=== PATIENT | male | born 1985 | race Caucasian/White ===

== ENCOUNTER 2023-09-03 18:28 | Inpatient (IN) | payer OTHER, SELFPAY ==
[2023-09-03] VITALS (14 sets, daily range): BP systolic 106–162; BP diastolic 71–101; BMI 29.9; BMI 29.3
[2023-09-03 10:09] LABS: % Basophils 1.1 % (0-2); % Eosinophils 2.9 % (0-6); % Immature Granulocytes 0.3 % (0-0.5); % Lymphocytes 30.8 % (20.5-51.1); % Monocytes 12.8 % (1.7-9.3); % Neutrophils 52.1 % (42.2-75.2); Absolute Basophils 0.1 10^3/uL (0-0.2); Absolute Eosinophils 0.2 10^3/uL (0-0.7); Absolute Lymphocytes 2.1 10^3/uL (1.2-3.4); Absolute Monocytes 0.9 10^3/uL (0.1-0.6); Absolute Neutrophils 3.5 10^3/uL (1.4-6.5); Hematocrit 44.9 % (39.0-52.0); Hemoglobin 15.4 g/dL (13.0-18.0); Mean Corp Hgb Conc. 34.3 g/dL (33.0-37.0); Mean Corpuscular Hgb 28.4 pg (27.0-31.0); Mean Corpuscular Volume 82.7 fL (80.0-94.0); Mean Platelet Volume 9.7 fL (7.4-10.4); Nucleated Red Blood Cells % 0 % (-); Platelet Count 357 10^3/uL (130-400); Red Blood Cell Count 5.43 10^6/uL (4.70-6.10); Red Cell Dist. Width 13.1 % (11.5-14.5); White Blood Cell Count 6.7 10^3/uL (4.8-10.8)
[2023-09-03 10:22] LABS: ALT (SGPT) 90 U/L (0-50); AST (SGOT) 57 U/L (17-59); Albumin 4.6 g/dl (3.5-5.0); Alkaline Phosphatase 77 U/L (38-126); Blood Urea Nitrogen 14 mg/dl (9-20); Calcium 9.6 mg/dl (8.4-10.2); Carbon Dioxide 26 mmol/L (22-30); Chloride 104 mmol/L (98-107); Glucose 108 mg/dl (70-99); Sodium 139 mmol/L (135-145); Total Bilirubin 0.8 mg/dl (0.2-1.3); Total Protein 7.2 g/dl (6.3-8.2); eGFR > 60.00
--- NOTE | 2023-09-03 10:53 | ED.GENMED ---
History of Present Illness
<Merari Pickett NP - Last Filed: 09/03/23 18:31>
General
Chief Complaint: Weakness
Source: patient and spouse
Exam Limitations: none
Time Seen by Provider: 09/03/23 10:46
Nursing documentation reviewed up to this point in time: agreed with
Travel History
Have you had any contact with someone who has COVID-19?: No
Do you have any symptoms of coronavirus? Fever > 100 degrees, chills, cough, shortness of breath, sore throat, loss of taste or smell, muscle aches, or headache?: No
History of Present Illness
History of Present Illness:
38 yo male with no significant PMHX presents stating:
4 days ago both 5th fingers and toes became tingly and this has persisted
3 days ago bilateral posterior thighs aching, this has passed but legs feel 'heavy.'
2 days ago: tingling spread to finger of both hands, sparing thumbs and index fingers, spread to all toes.
Numbness left upper cheek and spiritism area
Tip of tongue feels numb
Roof of mouth feels numb
Calves feel like he ran a marathon and legs are heavy causing him to walk slowly
Both arms feel heavy, unable to lift right arm more than 90 degrees due to heavy feeling, no pain.
states pt walks 'hunched over and leaning to the right and walks slowly' past 2 days. (He does ambulate slowly and feels unsteady due to weak legs)
No recollection of overuse or injury.
No significant family history
Family had GI virus last week with n/v. Pt had nausea for one day 3 days ago, no other symptoms
PE: drifting RUE, 5/5 strength all extremities, ambulates well but slowly, almost fell on way in when he tries to walk any faster, as legs give out.
CBC, CMP, CPK normal
No meningeal signs
No vascular deficits.
You can reach me at [phone] if you need to talk
Your thoughts? Do you think he needs MRI or spinal tap, we can admit for further work up.
He seems to be a reasonable man.
Past History
<Merari Pickett SCOUT EXECUTIVE - Last Filed: 09/03/23 18:31>
Past History
ED Past Medical History: None
ED Past Surgical History: None
Social History
Tobacco: Non-smoker
Alcohol: None
Personal:
Living: with family
Employment: Employed (desk job)
Family History
Family History: Cancer
Review of Systems
<Merari Pickett, SCOUT EXECUTIVE - Last Filed: 09/03/23 18:31>
Review of Systems
Allergies reviewed?: Yes
All Other Systems: ROS reviewed and negative except as documented in HPI and ROS
Constitutional: Denies fever or chills
EENT: Denies sore throat
Respiratory: Denies trouble breathing
Cardiac: Denies chest pain
ABD/GI: Denies abdominal pain, nausea, vomiting, diarrhea or anorexia
: Denies dysuria, incontinence, difficulty voiding or urgency
Musculoskeletal: Reports back pain (chronic intermittent back and neck pain, nothing new)
Skin: Reports no symptoms
Neurological: Reports numbness (as described in HPI); Denies dizzy or headache
Endocrine: Denies polyuria or polydipsia
Hematologic/Lymphatic: Reports no symptoms
Psychiatric: Reports no symptoms
Phy Exam
<Merari Pickett, SCOUT EXECUTIVE - Last Filed: 09/03/23 18:31>
Physical Exam
Physical Exam:
GENERAL: No acute distress. A&Ox3.
CONSTITUTIONAL: Afebrile.
EYES: PERRL, conjunctivae normal, EOMs intact
Neck: Supple
ENMT: moist mucus membranes, Pharynx nl
RESPIRATORY: Regular respirations, nonlabored, lungs clear.
CARDIOVASCULAR: Regular rate and rhythm, no murmurs, no rubs.
GI: Soft, nontender, normal BS
MUSCULOSKELETAL: Moves with ease. Well perfused.
SKIN: Warm, dry, pink
PSYCH: Normal mood and affect. Well kept, interactive and appropriate
NEUROLOGIC: Awake, alert and oriented. Speech clear. CN 2-12 intact. Unable to elicit any reflexes in upper or lower extremities
Course
<Merari Pickett, SCOUT EXECUTIVE - Last Filed: 09/03/23 18:31>
Orders/Labs/Results
Orders:
Orders
09/03/23 Breakfast
Regular
09/03/23 09:58
C-Reactive Protein Urgent
Comment: ADD
Complete Blood Count/With Diff Urgent
Comprehensive Metabolic Panel Urgent
Creatine Phosphokinase Urgent
Erythrocyte Sed Rate Urgent
Comment: ADD
Ganglioside Ab Panel [S] Urgent
Comment: ADD ON
Glycohemoglobin (HgbA1c) Urgent
TSH Urgent
Comment: ADD
Vitamin B12 Urgent
Comment: ADD
09/03/23 11:35
Add On- LAB Urgent
Tests Added?: CPK
Add On- LAB Urgent
Tests Added?: Lyme progressive
09/03/23 13:00
Add On- LAB Routine
Tests Added?: B1, b12, tsh, lyme, crp, esr, hiv, hemoglobin a1c
09/03/23 13:02
Bedside Cytology Routine
Date Specimen was Collected: 09/03/23
Time Specimen was Collected: 15:14
Source: CSF
Clinical Impression: muscle weakness, paresthesias, ?GBS
Comment: tube #3
Vital Capacity [RESP] Urgent
Quantity: 1
Special Instructions: please tiger text Danica Gore with results
needs NIF/VC
09/03/23 13:03
CT Head W/o Iv Contrast Routine
Comment:
Reason For Exam: weakness, paresthesias
09/03/23 13:07
NEUROLOGY CONSULT Urgent
Consulting Provider: Danica Gore
Was physician already notified: Yes
Reason for consult: Poss GBS
09/03/23 15:23
Angiotensin-1- Converting, CSF [S] Urgent
CSF Cell Count Urgent
Date Specimen was Collected: 09/03/23
Time Specimen was Collected: 15:14
CSF Tube Number: 4
CSF Cell Count X Urgent
Date Specimen was Collected: 09/03/23
Time Specimen was Collected: 15:14
CSF Tube Number: 4
HIV Combo Urgent
Lyme PCR, DNA [S] Urgent
Lyme Progressive Urgent
Paraneoplastic Ab IgG, CSF [S] Urgent
Spinal Fluid Glucose Urgent
Date Specimen was Collected: 09/03/23
Time Specimen was Collected: 15:14
CSF Tube Number: 2
Spinal Fluid Protein Urgent
Date Specimen was Collected: 09/03/23
Time Specimen was Collected: 15:14
CSF Tube Number: 2
Vitamin B1, Whole Blood [S] Urgent
CSF Culture with Gram Stain Urgent
TRUMAN Source: Csf
Specimen Description:
Date Specimen was Collected: 09/03/23
Time Specimen was Collected: 15:14
# of Tube: 3
Meningitis Panel, CSF by PCR Urgent
TRUMAN Source: Csf
Specimen Description:
09/03/23 16:14
Add On- LAB Routine
Tests Added?: anti-gq1b antibody--serum
09/03/23 16:50
Immune Globulin Per Pharmacy [Immune Globulin- Pharmacy To Place] 35 gram IV DIRECTED ONE
09/03/23 17:08
EMG [Electromyography] Routine
Reason for Exam: GBS
09/03/23 17:28
MR Brain W/o & With Contrast Routine
Comment:
Reason For Exam: tongue numbness, facial numbness, ?gbs
Recent pill cam endoscopy?: No
09/03/23 18:10
Admit/Transfer Patient As Directed
Co-Sign Provider:
Level of Care: Inpatient admission
Assign to:: IMU- Intermediate Care
Physician / Group: Adri
Diagnosis: GBS
Reason for Hospitalization: IVIG
Expected length of stay greater than two midnights?: Yes
ELOS- Estimated Length of Stay in days: 3
I certify the patient meets the requirements for IP care: Yes
09/03/23 18:11
Code Status As Directed
Resuscitation Status: Full Code
09/03/23 18:30
0.9% Sodium Chloride 1000 ml [Nss] 1,000 ml IV 100 mls/hr
09/03/23 22:00
Pft Mip/mep [RESP] TID
Quantity: 1
Vital Capacity [RESP] TID
Quantity: 9
Special Instructions: text Dr. Gore with results through 7am on 09/04; check with NIF
09/04/23 08:00
Pft Mip/mep [RESP] TID
Quantity: 1
Vital Capacity [RESP] TID
Quantity: 9
Special Instructions: text Dr. Gore with results through 7am on 09/04; check with NIF
09/04/23 16:00
Pft Mip/mep [RESP] TID
Quantity: 1
Vital Capacity [RESP] TID
Quantity: 9
Special Instructions: text Dr. Gore with results through 7am on 09/04; check with NIF
09/04/23 22:00
Pft Mip/mep [RESP] TID
Quantity: 1
Vital Capacity [RESP] TID
Quantity: 9
Special Instructions: text Dr. Gore with results through 7am on 09/04; check with NIF
09/05/23 08:00
Pft Mip/mep [RESP] TID
Quantity: 1
Vital Capacity [RESP] TID
Quantity: 9
Special Instructions: text Dr. Gore with results through 7am on 09/04; check with NIF
09/05/23 16:00
Pft Mip/mep [RESP] TID
Quantity: 1
Vital Capacity [RESP] TID
Quantity: 9
Special Instructions: text Dr. Gore with results through 7am on 09/04; check with NIF
09/05/23 22:00
Pft Mip/mep [RESP] TID
Quantity: 1
Vital Capacity [RESP] TID
Quantity: 9
Special Instructions: text Dr. Gore with results through 7am on 09/04; check with NIF
09/06/23 08:00
Pft Mip/mep [RESP] TID
Quantity: 1
Vital Capacity [RESP] TID
Quantity: 9
Special Instructions: text Dr. Gore with results through 7am on 09/04; check with NIF
09/06/23 16:00
Pft Mip/mep [RESP] TID
Quantity: 1
Vital Capacity [RESP] TID
Quantity: 9
Special Instructions: text Dr. Gore with results through 7am on 09/04; check with NIF
Abnormal Lab Results
09/03/23 09/03/23 09/03/23
09:58 15:23 15:23
Absolute Monos (auto) 0.9 H 10^3/uL
(0.1-0.6)
Monocytes % 12.8 H %
(1.7-9.3)
Glucose 108 H mg/dl
(70-99)
ALT 90 H U/L
(0-50)
C-Reactive Protein 36.70 H mg/L
(0.0-10.00)
CSF WBC 7 H* mm^3 8 H* mm^3
(0-5) (0-5)
CSF Total Protein 98 H mg/dl
(12-60)
09/03/23 09:58
09/03/23 09:58
Vital Signs
Initial and Last Documented VS:
Initial Vital Signs
Temp Pulse Resp BP Pulse Ox
98.1 F 102 18 153/88 97
09/03/23 09:41 09/03/23 09:41 09/03/23 09:41 09/03/23 09:41 09/03/23 09:41
Last Documented Vital Signs
Temp Pulse Resp BP Pulse Ox
98.1 F 76 16 124/80 99
09/03/23 09:41 09/03/23 18:00 09/03/23 18:00 09/03/23 18:00 09/03/23 18:00
Station Worker consulted with Physician
Station Worker consulted with physician?: Yes
Name of Physician Consulted: Theodore
<Savita Jaimes MD - Last Filed: 09/03/23 16:48>
Orders/Labs/Results
Orders:
Orders
09/03/23 Breakfast
Regular
09/03/23 09:58
C-Reactive Protein Urgent
Comment: ADD
Complete Blood Count/With Diff Urgent
Comprehensive Metabolic Panel Urgent
Creatine Phosphokinase Urgent
Erythrocyte Sed Rate Urgent
Comment: ADD
Ganglioside Ab Panel [S] Urgent
Comment: ADD ON
Glycohemoglobin (HgbA1c) Urgent
TSH Urgent
Comment: ADD
Vitamin B12 Urgent
Comment: ADD
09/03/23 11:35
Add On- LAB Urgent
Tests Added?: CPK
Add On- LAB Urgent
Tests Added?: Lyme progressive
09/03/23 13:00
Add On- LAB Routine
Tests Added?: B1, b12, tsh, lyme, crp, esr, hiv, hemoglobin a1c
09/03/23 13:02
Bedside Cytology Routine
Date Specimen was Collected: 09/03/23
Time Specimen was Collected: 15:14
Source: CSF
Clinical Impression: muscle weakness, paresthesias, ?GBS
Comment: tube #3
Vital Capacity [RESP] Urgent
Quantity: 1
Special Instructions: please tiger text Danica Gore with results
needs NIF/VC
09/03/23 13:03
CT Head W/o Iv Contrast Routine
Comment:
Reason For Exam: weakness, paresthesias
09/03/23 13:07
NEUROLOGY CONSULT Urgent
Consulting Provider: Danica Gore
Was physician already notified: Yes
Reason for consult: Poss GBS
09/03/23 15:23
Angiotensin-1- Converting, CSF [S] Urgent
CSF Cell Count Urgent
Date Specimen was Collected: 09/03/23
Time Specimen was Collected: 15:14
CSF Tube Number: 4
CSF Cell Count X Urgent
Date Specimen was Collected: 09/03/23
Time Specimen was Collected: 15:14
CSF Tube Number: 4
HIV Combo Urgent
Lyme PCR, DNA [S] Urgent
Lyme Progressive Urgent
Paraneoplastic Ab IgG, CSF [S] Urgent
Spinal Fluid Glucose Urgent
Date Specimen was Collected: 09/03/23
Time Specimen was Collected: 15:14
CSF Tube Number: 2
Spinal Fluid Protein Urgent
Date Specimen was Collected: 09/03/23
Time Specimen was Collected: 15:14
CSF Tube Number: 2
Vitamin B1, Whole Blood [S] Urgent
CSF Culture with Gram Stain Urgent
TRUMAN Source: Csf
Specimen Description:
Date Specimen was Collected: 09/03/23
Time Specimen was Collected: 15:14
# of Tube: 3
Meningitis Panel, CSF by PCR Urgent
TRUMAN Source: Csf
Specimen Description:
09/03/23 16:14
Add On- LAB Routine
Tests Added?: anti-gq1b antibody--serum
09/03/23 16:50
Immune Globulin Per Pharmacy [Immune Globulin- Pharmacy To Place] 35 gram IV DIRECTED ONE
09/03/23 17:08
EMG [Electromyography] Routine
Reason for Exam: GBS
09/03/23 17:28
MR Brain W/o & With Contrast Routine
Comment:
Reason For Exam: tongue numbness, facial numbness, ?gbs
Recent pill cam endoscopy?: No
09/03/23 18:10
Admit/Transfer Patient As Directed
Co-Sign Provider:
Level of Care: Inpatient admission
Assign to:: IMU- Intermediate Care
Physician / Group: Adri
Diagnosis: GBS
Reason for Hospitalization: IVIG
Expected length of stay greater than two midnights?: Yes
ELOS- Estimated Length of Stay in days: 3
I certify the patient meets the requirements for IP care: Yes
09/03/23 18:11
Code Status As Directed
Resuscitation Status: Full Code
09/03/23 18:30
0.9% Sodium Chloride 1000 ml [Nss] 1,000 ml IV 100 mls/hr
09/03/23 22:00
Pft Mip/mep [RESP] TID
Quantity: 1
Vital Capacity [RESP] TID
Quantity: 9
Special Instructions: text Dr. Gore with results through 7am on 09/04; check with NIF
09/04/23 08:00
Pft Mip/mep [RESP] TID
Quantity: 1
Vital Capacity [RESP] TID
Quantity: 9
Special Instructions: text Dr. Gore with results through 7am on 09/04; check with NIF
09/04/23 16:00
Pft Mip/mep [RESP] TID
Quantity: 1
Vital Capacity [RESP] TID
Quantity: 9
Special Instructions: text Dr. Gore with results through 7am on 09/04; check with NIF
09/04/23 22:00
Pft Mip/mep [RESP] TID
Quantity: 1
Vital Capacity [RESP] TID
Quantity: 9
Special Instructions: text Dr. Gore with results through 7am on 09/04; check with NIF
09/05/23 08:00
Pft Mip/mep [RESP] TID
Quantity: 1
Vital Capacity [RESP] TID
Quantity: 9
Special Instructions: text Dr. Gore with results through 7am on 09/04; check with NIF
09/05/23 16:00
Pft Mip/mep [RESP] TID
Quantity: 1
Vital Capacity [RESP] TID
Quantity: 9
Special Instructions: text Dr. Gore with results through 7am on 09/04; check with NIF
09/05/23 22:00
Pft Mip/mep [RESP] TID
Quantity: 1
Vital Capacity [RESP] TID
Quantity: 9
Special Instructions: text Dr. Gore with results through 7am on 09/04; check with NIF
09/06/23 08:00
Pft Mip/mep [RESP] TID
Quantity: 1
Vital Capacity [RESP] TID
Quantity: 9
Special Instructions: text Dr. Gore with results through 7am on 09/04; check with NIF
09/06/23 16:00
Pft Mip/mep [RESP] TID
Quantity: 1
Vital Capacity [RESP] TID
Quantity: 9
Special Instructions: text Dr. Gore with results through 7am on 09/04; check with NIF
Abnormal Lab Results
09/03/23 09/03/23 09/03/23
09:58 15:23 15:23
Absolute Monos (auto) 0.9 H 10^3/uL
(0.1-0.6)
Monocytes % 12.8 H %
(1.7-9.3)
Glucose 108 H mg/dl
(70-99)
ALT 90 H U/L
(0-50)
C-Reactive Protein 36.70 H mg/L
(0.0-10.00)
CSF WBC 7 H* mm^3 8 H* mm^3
(0-5) (0-5)
CSF Total Protein 98 H mg/dl
(12-60)
09/03/23 09:58
09/03/23 09:58
Vital Signs
Initial and Last Documented VS:
Initial Vital Signs
Temp Pulse Resp BP Pulse Ox
98.1 F 102 18 153/88 97
09/03/23 09:41 09/03/23 09:41 09/03/23 09:41 09/03/23 09:41 09/03/23 09:41
Last Documented Vital Signs
Temp Pulse Resp BP Pulse Ox
98.1 F 76 16 124/80 99
09/03/23 09:41 09/03/23 18:00 09/03/23 18:00 09/03/23 18:00 09/03/23 18:00
<Savita Jaimes MD - Last Filed: 09/03/23 16:48>
Lumbar Puncture
Indication for procedure:: concern for guillan barre (weakness and numbness in arms and legs)
Procedure completed by: Dr Savita Jaimes
Consent form signed: Yes
Anesthesia/sedation: 1% Lidocaine with Epi
Preparation: cleaned with Betadine
Position: sitting
Needle Size: 22 gauge
Needle Type: Lumbar Needle
Number of attempts: 1
Dressing applied to puncture site: bandaid
Complications: none
<Merari Pickett SCOUT EXECUTIVE - Last Filed: 09/03/23 18:31>
MDM/Problems Addressed
Differential Diagnosis Includes:
Vascular vs neurological
AAA, Guillain-Madison, Lymes
MDM/Problems Addressed:
38 yo male with no significant PMHX presents stating:
4 days ago both 5th fingers and toes became tingly and this has persisted
3 days ago bilateral posterior thighs aching, this has passed but legs feel 'heavy.'
2 days ago tingling spread to finger of both hands, sparing thumbs and index fingers, spread to all toes.
Tip of tongue feels numb
Roof of mouth feels numb
Calves feel like he ran a marathon and legs are heavy causing him to walk slowly
Both arms feel heavy, unable to lift right arm more than 90 degrees due to heavy feeling, no pain.
states pt walks 'hunched over and leaning to the right and walks slowly' past 2 days.
Pt has history of TMJ, last night chewing developed sudden pain left jaw with pop and has had numbness in left spiritism area since.
No recollection of overuse or injury.
No significant family history
Family had GI virus last week with n/v. Pt had nausea for one day 3 days ago, no other symptoms
No meningeal signs
Totally nontoxic-appearing
09/03/[address] Jaimes into evaluate patient
Agrees, she is also unable to elicit any reflexes in the upper or lower extremities
Consulted neurology Dr. Chatman who requests head CT, LP and will workup for Guillain-Bruce� syndrome
<Merari Pickett NP - Last Filed: 09/03/23 18:31>
*Critical Care Note
Total Time (30-74mins, 75-104mins- exclusive of procedures): Not Applicable
ED Attending Note
<Merari Pickett SCOUT EXECUTIVE - Last Filed: 09/03/23 18:31>
-
Portions of this chart may have been created with voice recognition software.� Occasional wrong word or��sound alike� substitutions may have occurred due to the inherent limitations of voice recognition software.
<Savita Jaimes MD - Last Filed: 09/03/23 16:48>
ED Attending Note
Patient seen and examined by attending physician: Yes
I performed the substantive portion of visit, reviewed & personally made and approve the management plan that is documented in note by myself or ROSS.: Yes
ED Attending Note:
Patient appears well nontoxic. No sign of meningitis. Patient describes heaviness and weakness of bilateral upper and lower extremities with tingling particularly in fingers and toes. Patient is breathing comfortably. There is no swelling of
extremities.
Discharge Plan
Departure
Patient Disposition: Admit
Date of Disposition: 09/03/23
Time of Disposition: 13:07
Admit to: Med/Surg
Presentation/result/management discussed w/ accepting MD/DO: Hospitalist
Condition: Fair
Discharge Problem:
Guillain-Madison
Interventions
Interventions:
*Risk Screen - Suicide Last Done: 09/03/23 11:38
*General Assessment Last Done: 09/03/23 11:38
*Neglect/Abuse Screening Last Done: 09/03/23 11:38
ED- Fall Risk Assessment Last Done: 09/03/23 11:38
*ED COVID-19 Vaccine History Last Done: 09/03/23 11:38
ED- Cardiac Assessment Last Done: 09/03/23 11:42
ED- Neurological Assessment Last Done: 09/03/23 11:42
ED- Pulmonary Assessment Last Done: 09/03/23 11:42
--- NOTE | 2023-09-03 11:02 | EDRN ---
Elizabeth MANUEL in room w/pt at this time.
--- NOTE | 2023-09-03 11:39 | EDRN ---
Pt states he arrives for tingling sensation in toes and fingertips bilaterally that progressed to pain in his lower legs amber calf area all bilateral. Pt states then parts of body started to go numb as L side of head and roof of mouth all over and
tip of tongue. Pt staets this started about 4 days ago. Pt states has limited ROM of R shoulder as cannot lift his lower arm above the shoulder at this time. Difficulty walking- walks like just ran 60 miles.
[2023-09-03 12:10] LABS: Creatine Phosphokinase 83 U/L (55-170)
[2023-09-03 14:24] LABS: Erythrocyte Sed Rate 17 mm/hour (0-20)
[2023-09-03 15:40] LABS: TSH 1.51 uIU/ml (0.47-4.68)
[2023-09-03 15:42] LABS: CSF Tube # 1; CSF Tube # 4
[2023-09-03 15:49] LABS: CSF Clarity Clear; CSF Color Colorless; CSF Tube # Clarity Clear
[2023-09-03 15:59] LABS: Vitamin B12 454 pg/ml (239-931)
--- NOTE | 2023-09-03 16:11 | EDRN ---
Pt had lumbar puncture at 15:00 and was completed at 15:15. Pt had syncopized at end of lumbar puncture and was assisted by 2 to lie down on stretcher.
[2023-09-03 16:12] LABS: Spinal Fluid Glucose 55 mg/dl (40-70); Spinal Fluid Protein 98 mg/dl (12-60)
[2023-09-03 16:18] LABS: Red Cell Count/CSF 0 mm^3
[2023-09-03 16:19] LABS: White Cell Count/CSF 7 mm^3 (0-5)
[2023-09-03 16:20] LABS: White Blood Cell Count/CSF 8 mm^3 (0-5)
[2023-09-03 16:23] LABS: Red Cell Count/CSF 0 mm^3
--- NOTE | 2023-09-03 16:50 | CON.NEURO4 ---
Addendum entered and electronically signed by Danica Gore, DO 09/03/23 17:43:
Check MRI brain w/wo contrast given ongoing sensation of facial/tongue numbness.
Original Note:
Consultation - Neurology 4
-
CONSULTING PHYSICIAN: Bao
REFERRING PHYSICIAN: Theodore
DICTATED BY: Bao
DATE/TIME OF REQUEST: 09/03/23 in the afternoon
DATE/TIME OF CONSULTATION: 09/03/23 at 1600
Reason for Consultation: weakness
History of Present Illness:
38-year-old male who came in today after progressively worsening paresthesias and muscle weakness. 10 days ago his family had a GI virus with nausea and vomiting. The patient had nausea but no other symptoms about 3 days ago. He states that about
4 days ago he started having tingling in fifth fingers and toes. About 3 days ago he started having muscle aches in his proximal bilateral lower extremities and noticed that his legs felt heavy. About 2 days ago the tingling sensation spread into
his hands and into his toes. He later developed numbness over his left upper cheek, the tip of his tongue and the roof of his mouth. His legs feel so heavy that he has been walking slowly. His arms also feel heavy. His told the ER that he
was walking in a 'hunched over way, leaning to the right and walking slowly' for the past 2 days. He denies any headache, difficulty swallowing, dysarthria, or diplopia. He has not had any facial weakness. He denies any shortness of breath. No.
He does have chronic low back pain which is unchanged.
He had an episode of vasovagal syncope during his lumbar puncture.
Past Medical History: none
Surgical History: none
Family History: no clear family history of neuropathy
Social History: employed, , lives with family, nonsmoker, no ETOH
Allergies
No Known Allergies Allergy (Unverified 09/03/23 09:39)
Home Medications
Medication Instructions Recorded
ducafdu-[id number]-[id number] 250 2 tab PO DAILYPRN PRN mild pain 09/03/23
mg-250 mg-65 mg tablet (Excedrin
Extra Strength)
Review of Symptoms:
Patient denies any fever, headache, chest pain, shortness of breath, GI or symptoms.
�Per the HPI.�All systems are reviewed negative except above.
Vital Signs
Temp Pulse Resp BP Pulse Ox
98.1 F 67 16 117/78 96
09/03/23 09:41 09/03/23 16:00 09/03/23 16:00 09/03/23 16:00 09/03/23 16:00
Lab Results
09/03/23 09:58
09/03/23 09:58
Sodium 139 mmol/L (135-145) 09/03/23 09:58
Potassium 4.0 mmol/L (3.5-5.1) 09/03/23 09:58
BUN 14 mg/dl (9-20) 09/03/23 09:58
Glucose 108 mg/dl (70-99) H 09/03/23 09:58
Calcium 9.6 mg/dl (8.4-10.2) 09/03/23 09:58
Vitamin B12 454 pg/ml (239-931) 09/03/23 09:58
Physical Exam:
The patient is afebrile, heart sounds S1 and S2 are regular , and chest is clear to auscultation bilaterally.
Neurologic Examination:
The patient is awake, alert and oriented x 3. He is able to follow commands and answer questions appropriately. There is no aphasia or dysarthria. On cranial nerve assessment, pupils are 3 mm bilateral, round and reactive to light and
accommodation. Visual swan are full. Extraocular movements are intact. Facial sensations were diminished over the L zygomatic arch to temperature but otherwise intact; there is no facial asymmetry. Hearing is intact bilaterally to normal
conversation volume. Tongue palate and uvula are midline. Sternocleidomastoid strengths are full bilaterally. Motor strengths are 5/5 in the BUE and 4+ in the proximal BLE, knee extension/flexion and ankle dorsiflexion/plantarflexion were 5-
bilaterally. Deep tendon reflexes are absent in bilateral upper and lower extremities and Babinski is absent bilaterally. Sensations of temperature and touch were diminished over the R calf and the forearms bilaterally in a patchy distribution.
There was no extinction noted on double simultaneous stimulation. Coordination is intact by finger to nose bilaterally.
Neuro Imaging:
HCT:
1. � There is no acute intracranial process.
2. � Probable small arachnoid cyst posterior left posterior fossa.
3. � Acute on chronic sinus disease, ethmoid and sphenoid sinuses visible on this exam.
Impression:
MAL ALLEN is a 38 year old M who has presented to the hospital with progressively worsening paresthesias affecting fingers and toes with spread into both hands and feet, eventually affecting his left face, the tip of his tongue and the roof of
his mouth. He also complains of heaviness in his legs and muscle weakness affecting his ability to walk. Family had a GI virus last week. He had nausea a few days ago but no other symptoms. His symptoms are concerning for Guillain-Bruce�. Vital
capacity was 2.2L with a predicted level of 4.9L; he denies any shortness of breath and from that standpoint is well-appearing. CSF shows protein of 98, WBC 7-8.
Recommendations:
1. start IVIG 0.4g/kg/day x 5 days, confirmed dosing with pharmacy
2. admission to IMU
3. VC/NIF TID; reviewed initial results with pulmonary
4. EMG/NCS tomorrow
5. added on B1, B12, TSH, Lyme, ESR, CRP, HIV, and GQ1b antibodies; follow remainder of CSF
6. consider MRI brain/spine depending upon course
7. neurochecks, fall precautions
Critical care time 70 mins
Discussed patient care with: Dr. Jaimes, Dr. Marinelli, respiratory therapy, nursing, pharmacy
[2023-09-03 17:27] LABS: CSF Lymphocytes 95 %; Spinal Fluid Lymphocytes 78 %; Spinal Fluid Macrophages 22 %; Spinal Fluid Macrophages 5 %
--- NOTE | 2023-09-03 18:14 | HPS.HSE ---
Addendum entered and electronically signed by Rhona Rush MD 09/03/23 18:42:
38-year-old male had sinus congestion recently whole family was sick. They did not test for COVID and has been getting better. 3 days ago he started feeling numbness in the fifth toes as well as little fingers on both arms. He also feels that the
legs are heavy and takes him more for to walk. No shortness of breath no chest pain no diarrhea. No diplopia no eye pain. Patient does have mild tingling sensation at the tip of his tongue
On examination awake alert Titus x 3
Speech is normal
No facial droop
Cardiovascular system S1-S2 appreciated
Chest clear to auscultation
Abdomen soft and nontender
Skin no rashes
Neuro exam absent reflexes throughout
4 x 5 strength right upper extremity and bilateral lower extremities mostly proximal muscles good distal muscle strength in lower extremities and upper extremity
Abnormal sensation bilateral lower extremities mostly till about knee also hands
Head CT with no acute changes.
Probable small arachnoid cyst in the posterior left posterior fossa. Chronic sinus changes.
# Numbness tingling and weakness
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
IVIG to be started now
Hydrate well
Neurochecks
EMG nerve conduction study routine
Normal B12 level
B1, Lyme, HIV and GQ 1B antibodies pending.
MRI of the brain rule out demyelination
#DVT Prophylaxis- Lovenox
#Full CODE
D/W at bed side
Original Note:
Family Physician
-
Family Physician: NOT KNOW UNKNOWN - PT DOES
Chief Complaint
-
Weakness
History of Present Illness
Pt is a 38yo M w/ no past medical history who is presenting to the ED complaining of progressively worsening numbness and weakness. He admits to tingling and numbness in his left fingers and toes x 4 days which has progressively worsened and spread
in an ascending pattern. He admits to bilateral hip pain which began while sleeping 3 days ago. He admits to trying Excedrin which he states did seem to improve the pain minimally. He states that he began experiencing muscle aches and weakness in
the bilateral lower extremities and describes his legs feeling 'heavy.' He admits to experiencing numbness on the left side of his neck, face and the hard palette. He states that he usually walks his dog around the same path every day and it tends
to take him around twenty minutes, but yesterday it took him 45 minutes. He also states that he has been unable to climb the stairs for the past 2 days and his bedroom is on the second floor of his home. He admits to having collapsed while at
today as he tried to walk quickly and show his abnormal gait, but was unable to hold himself up.�He admits to having a GI illness that presented with nausea as well as reent URI with swollen eyes, nasal congestions and sinus pressure. He denies any
similar episodes in the past.
Medical History
Past Medical History
Past Medical History: Reports None
Past Surgical History: Reports None
Social History
Tobacco: Non-smoker
Alcohol: None
Family History
Family History: Not pertinent
Allergies / Home Medications
Allergies reflects when Allergies were last updated in [facility].
Home Medications with original date entered in [facility]
Allergy/Medication List:
Allergies
Allergy/AdvReac Type Severity Reaction Status Date / Time
No Known Allergies Allergy Unverified 09/03/23 09:39
Home Medications
bebwohi-abzvofqjalruv-vnnyvmqo 250 mg-250 mg-65 mg tablet (Excedrin Extra Strength) 2 tab PO DAILYPRN PRN mild pain 09/03/23
Review of Systems
-
A 12 point ROS was completed and negative except as noted: Yes
Constitutional: Denies Fever or Chills
Respiratory: Denies Cough or Trouble Breathing
Cardiac: Denies Chest Pain or Palpitations
Abdomen/GI: Denies Abdominal Pain, Nausea, Vomiting or Diarrhea
: Denies Dysuria, Incontinence or Difficulty Voiding
Neurological: Reports See HPI
Physical Exam
Vital Signs
Vital Signs
Temp Pulse Resp BP Pulse Ox
98.1 F 68 14 124/82 98
09/03/23 09:41 09/03/23 17:00 09/03/23 17:00 09/03/23 17:00 09/03/23 17:00
Physical Exam
General: Comfortable and Conversant
HEENT: Moist mucous membranes and Atraumatic
Respiratory: Non Labored Respirations
Cardiac: S1/S2 and Regular Rhythm
GI: Soft, Non Tender and Non Distended
Rectal: Deferred by Provider
Musculoskeletal: No Clubbing, No Cyanosis and No Edema
Skin: Warm and Dry
Neuro: Awake, Alert, Oriented and Other (4/5 Strength proximal bilateral lower extremities)
Laboratory Results
-
09/03/23 09:58
09/03/23 09:58
Laboratory Results
Total Bilirubin 0.8 mg/dl (0.2-1.3) 09/03/23 09:58
AST 57 U/L (17-59) 09/03/23 09:58
ALT 90 U/L (0-50) H 09/03/23 09:58
Alkaline Phosphatase 77 U/L (38-126) 09/03/23 09:58
Data Reviewed
-
Lab Data: Labs Reviewed by me
Impression/Plan
-
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
-Appreciate Neurology Consult
-Continue IV IG
-Check EMG
-Check Brain MRI
-Monitor Neurological checks
-Consult PT/OT
DVT Proph: Lovenox
Code Status: Full Code
--- NOTE | 2023-09-03 18:22 | EDRN ---
Dr. Rush in room w/ pt at this time.
[2023-09-04] VITALS (30 sets, daily range): BP systolic 97–154; BP diastolic 62–97; PULSE 80; O2SAT 95; BMI 29.3
[2023-09-04] MEDS: GAMMAGARD 50 IV ×2 (00:01→21:07)
--- NOTE | 2023-09-04 01:05 | PTCARENOTE ---
Patient arrived from ED, was able to walk into room with standby assist. IVIgG initiated soon after. Patient tolerating infusion.
[2023-09-04] MEDS: GAMMAGARD 300 IV ×2 (02:57→21:05)
[2023-09-04] MEDS: NSS 1000 IV (02:59)
[2023-09-04 05:08] LABS: Hematocrit 41.3 % (39.0-52.0); Hemoglobin 14.4 g/dL (13.0-18.0); Mean Corp Hgb Conc. 34.9 g/dL (33.0-37.0); Mean Corpuscular Hgb 28.9 pg (27.0-31.0); Mean Corpuscular Volume 82.8 fL (80.0-94.0); Mean Platelet Volume 9.9 fL (7.4-10.4); Platelet Count 313 10^3/uL (130-400); Red Blood Cell Count 4.99 10^6/uL (4.70-6.10); Red Cell Dist. Width 13.3 % (11.5-14.5); White Blood Cell Count 3.9 10^3/uL (4.8-10.8)
[2023-09-04 05:36] LABS: Blood Urea Nitrogen 18 mg/dl (9-20); Calcium 9.4 mg/dl (8.4-10.2); Carbon Dioxide 23 mmol/L (22-30); Chloride 105 mmol/L (98-107); Estimated Creatinine Clearance > 125 ml/min; Glucose 102 mg/dl (70-99); Potassium 4.3 mmol/L (3.5-5.1); Sodium 138 mmol/L (135-145); eGFR > 60.00
--- NOTE | 2023-09-04 08:10 | W.PN.NEURO.1 ---
Today's Communication / Plan
-
.
Subjective/Objective
Subjective Data
Date of Service: September 04, 2023
24h events: intermittently hypotensive down to 97/62, afebrile. Mr. Viera endorses chronic nonradicular back pain and R clavicular pain. No reports of dyspnea, dysphagia, headache, diplopia. Continues to have paraesthesias in the feet, hands and tip
of the tongue.
He tolerated his first dose of Gammagard well (received at 02:57 AM today).
Labs: CRP-36.70, normal vit B12, TSH, CK, ESR
CSF(09/03/2023)- WBC 7-8, protein 98, gluc 55
Constitutional: Negative. Negative for chills, fever and unexpected weight change.
HENT: Negative for ear pain, hearing loss, tinnitus and trouble swallowing.
Eyes: Negative. Negative for photophobia, pain and visual disturbance.
Respiratory: Negative for cough, choking and shortness of breath.
Cardiovascular: Negative for chest pain, palpitations and leg swelling.
Gastrointestinal: Negative for abdominal pain and vomiting.
Endocrine: Negative. Negative for cold intolerance.
Genitourinary: Negative for dysuria, flank pain and urgency.
Musculoskeletal: positive for chronic back pain, left scapular pain
Skin: Negative for rash.
Allergic/Immunologic: Negative. Negative for immunocompromised state.
Neurological: positive for L>R proximal arm weakness.
Psychiatric/Behavioral: Negative for behavioral problems, confusion and hallucinations.
�
�
General: Well developed. In no acute distress.
Cardio: Regular rate and rhythm without murmur. Extremities are without cyanosis or edema.
Neuro:
Mental Status: Alert, oriented to person, place, and date.� Normal attention and recall.� Good fund of knowledge. Follows complex requests across the midline.� Comprehension, naming, and repetition intact.� Immediate and delayed recall 3/3.
Cranial Nerves: Unable to visualize optic discs due to insufficient dilatation. Pupils are equally round and reactive to light.� EOMs full.� Visual swan full to confrontation.� No ptosis.� No nystagmus.� V1-V3 intact to light touch and pinprick
bilaterally, symmetric.� Face symmetric.�Able to whistle. Normal hearing AU.� The palate elevated well.� SCMs and traps 5/5.� Tongue midline.� No dysarthria.
Motor:������� Normal bulk and tone.� No pronator or arm drift.� Strength 5/5 throughout, except for L delt 4/5, L tric 4/5, L hip flexion 5-/5. Neck flexors/extensors-5/5.
Reflexes:������������ 0+ throughout the upper extremities and knees.� 0/2 in AJs. Plantar responses flexor bilaterally.
Sensory:���� Normal vibration and JPS at the toes
Coordination: No dysmetria or tremor.�
Gait:���������� deferred
�
Assessment and Plan:
I. GBS syndrome
II. �Probable small arachnoid cyst posterior left posterior fossa.
III. Elevated CRP
�-Continue Telemetry monitoring
-NIF Q 3h
-Gammagard 0.4mg/kg/day for 5 days.
-PVR
-MRI brain, C/T spine with evan
-Daily CBC, COMP
-Lyme ab, vit B1, copper, TERRI, HIV, GQ1b, GM1 ab, NAVIN
-PT
-OP NCS/EMG in 3 weeks.
-DVT prophylaxis.
�
�
�
I personally reviewed all radiology and labs along with past medical records pertinent to current medical problems, total time spent in patient care is 45 minutes.
Objective Data
Vital Signs
Temp Pulse Resp BP Pulse Ox
36.9 C 58 15 97/62 97
09/04/23 03:40 09/04/23 06:00 09/04/23 06:00 09/04/23 06:00 09/04/23 06:00
Lab Results
09/04/23 04:40
09/04/23 04:40
Sodium 138 mmol/L (135-145) 09/04/23 04:40
Potassium 4.3 mmol/L (3.5-5.1) 09/04/23 04:40
BUN 18 mg/dl (9-20) 09/04/23 04:40
Glucose 102 mg/dl (70-99) H 09/04/23 04:40
Calcium 9.4 mg/dl (8.4-10.2) 09/04/23 04:40
Vitamin B12 454 pg/ml (239-931) 09/03/23 09:58
Patient Allergies
No Known Allergies Allergy (Unverified 09/03/23 09:39)
Modified [place] Score (MRS)
-
MRS Score:
[2023-09-04 08:50] LABS: Glycohemoglobin (HgbA1c) 5.6 % (4.0-5.6)
--- NOTE | 2023-09-04 10:50 | W.PN.HOSP.TC ---
Today's Communication/Plan
-
IVIG
MRI
Assessment / Plan
Assessment / Plan
Exam unchanged from yesterday
LLE weakness slightly better
RLE and RUE same
# Numbness tingling and weakness
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
IVIG started
Hydrate well-Pt aware
Neurochecks
EMG nerve conduction study routine- in 3 weeks per neuro
Normal B12 level
B1, Lyme, HIV and GQ 1B antibodies pending.
MRI of the brain rule out demyelination
#DVT Prophylaxis- Lovenox
#Full CODE
D/W RN
Anticipated Discharge: > 48 hours
Subjective/Interval History
-
Date of Service: September 04, 2023
Objective Data
-
Labs:
Laboratory Results
09/04/23
04:40
WBC 3.9 L
Hgb 14.4
Hct 41.3
Plt Count 313
Sodium 138
Potassium 4.3
Chloride 105
Carbon Dioxide 23
BUN 18
Creatinine 0.8
Glucose 102 H
Calcium 9.4
Vital Signs:
Vital Signs
Temp Pulse Resp BP Pulse Ox
98.4 F 67 5 118/85 98
09/04/23 03:40 09/04/23 08:45 09/04/23 08:45 09/04/23 08:00 09/04/23 08:30
I&O
09/03/23 09/04/23 09/05/23
06:59 06:59 06:59
Intake Total 1110 / 1110
Balance 1110 / 1110
[2023-09-04] MEDS: TYLENOL 650 MG PO ×2 (14:11→22:04)
--- NOTE | 2023-09-04 16:02 | NS.EMG ---
Electromyogram (EMG) Study
EMG/NCS Summary
EMG/NCS of the right upper limb and the left lower limb was completed at the bedside in the patient's hospital room.
Electrodiagnostic abnormalities were present as seen in early GBS (acute demyelinating polyradiculoneuropathy).
F-wave latencies are prolonged and a tibial A-wave is present which can be seen in demyelinating disease. The nerve conduction study showed prolonged distal latencies. The needle EMG showed reduced recruitment pattern but no abnormal spontaneous
activity to suggest axonal loss.
Tabular data and full dictated report to follow.
Extremities tested: Right upper and Left lower
--- NOTE | 2023-09-04 16:23 | CM ---
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 Room air. Receiving IV Immune Globulin. PT recommends outpatient PT v no needs. OT recommends outpatient therapy.
Met with patient and spoke with Kirstin by phone;
the patient resides with his and 2 children ages 2 & 4, in a 2 story house.
The patient has been independent in ADLs and ambulation until 1 day prior to admission when he was unable to lift his children and had difficulty climbing the stairs.
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
works from home.
The patient has no DME.
He has no PCP.
[facility] - [facility]
Patient & receptive to scripts for outpatient PT/OT.
Plan request scripts for outpatient PT/OT.
Plan home.
[2023-09-04 16:46] LABS: Lyme Antibody Screen, EIA Negative (Negative)
[2023-09-04] MEDS: LOVENOX 40 MG SC (17:58)
--- NOTE | 2023-09-04 18:39 | PTCARENOTE ---
Patient ambulating to BR with assistance x1. Steady gait but reports some weakness and numbness and tingling of extremities. Patient will receive day 2 of IGG tonight. Vital signs stable. SR/SB on monitor.
[2023-09-04] MEDS: ANESTHETIC LOZENGE 1 LOZENGE PO (22:41)
[2023-09-05] VITALS (21 sets, daily range): BP systolic 101–146; BP diastolic 58–118; PULSE 90; O2SAT 98; BMI 29.7
--- NOTE | 2023-09-05 01:07 | PTCARENOTE ---
Addendum entered by Nancy Batista RN 09/05/23 05:51:
Pt had complaint of pain legs and hips, night MANAGER SAS made aware, pain medication ordered. Reassessment, pain level went down.
Original Note:
Pt AAOX3, IVIG infused without complication. Pt complaint of cough, night MANAGER SAS notified and lozenge ordered. Assessment care and vitals as charted.
[2023-09-05] MEDS: PERCOCET 5/325 1 TABLET PO (03:47)
[2023-09-05 05:40] LABS: Blood Urea Nitrogen 17 mg/dl (9-20); Carbon Dioxide 23 mmol/L (22-30); Chloride 108 mmol/L (98-107); Estimated Creatinine Clearance > 125 ml/min; Glucose 109 mg/dl (70-99); Magnesium 2.1 mg/dl (1.6-2.3); Potassium 4.1 mmol/L (3.5-5.1); Sodium 136 mmol/L (135-145); eGFR > 60.00
--- NOTE | 2023-09-05 10:14 | W.PN.HOSP.TC ---
Today's Communication/Plan
-
IVIG
MRI
Assessment / Plan
Assessment / Plan
Exam unchanged from yesterday
LLE weakness slightly better
RLE and RUE same
Had cramps last night
# Numbness tingling and weakness
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
EMG/NCS C/W GBS-acute demyelination. No axonal injury.
IVIG started 09/03/2023. Today is day 3
Hydrate well-Pt aware
Neurochecks
Normal B12 level
B1, Lyme, HIV and GQ 1B antibodies pending.
MRI of the brain rule out demyelination-pending
#DVT Prophylaxis- Lovenox
#Full CODE
D/W RN
Anticipated Discharge: > 48 hours
Subjective/Interval History
-
Date of Service: September 05, 2023
Objective Data
-
Labs:
Laboratory Results
09/05/23
04:37
Sodium 136
Potassium 4.1
Chloride 108 H
Carbon Dioxide 23
BUN 17
Creatinine 0.8
Glucose 109 H
Calcium 9.0
Vital Signs:
Vital Signs
Temp Pulse Resp BP Pulse Ox
97.6 F 61 13 121/85 96
09/05/23 07:46 09/05/23 06:03 09/05/23 06:03 09/05/23 06:02 09/05/23 06:01
I&O
09/04/23 09/05/23 09/06/23
06:59 06:59 06:59
Intake Total 1110 / 1110 2990 / 2990
Output Total 2069
Balance 1110 / 1110 920 / 920
--- NOTE | 2023-09-05 10:37 | W.PN.NEURO.1 ---
Today's Communication / Plan
-
.
Subjective/Objective
Subjective Data
Date of Service: September 05, 2023
24h events: normotensive, afebrile. Mr. Viera endorses improvement in his motor strength. Continues to have paraesthesias . No reports of headache, dyspnea, dysarthria, dysphagia change in vision
MRIs are pending.
Labs: CRP-36.70, normal vit B12, TSH, CK, ESR
CSF(09/03/2023)- WBC 7-8, protein 98, gluc 55
Constitutional: Negative. Negative for chills, fever and unexpected weight change.
HENT: Negative for ear pain, hearing loss, tinnitus and trouble swallowing.
Eyes: Negative. Negative for photophobia, pain and visual disturbance.
Respiratory: Negative for cough, choking and shortness of breath.
Cardiovascular: Negative for chest pain, palpitations and leg swelling.
Gastrointestinal: Negative for abdominal pain and vomiting.
Endocrine: Negative. Negative for cold intolerance.
Genitourinary: Negative for dysuria, flank pain and urgency.
Musculoskeletal: positive for chronic back pain, left scapular pain
Skin: Negative for rash.
Allergic/Immunologic: Negative. Negative for immunocompromised state.
Neurological: positive for L>R proximal arm weakness.
Psychiatric/Behavioral: Negative for behavioral problems, confusion and hallucinations.
�
�
General: Well developed. In no acute distress.
Cardio: Regular rate and rhythm without murmur. Extremities are without cyanosis or edema.
Neuro:
Mental Status: Alert, oriented to person, place, and date.� Normal attention and recall.� Good fund of knowledge. Follows complex requests across the midline.� Comprehension, naming, and repetition intact.� Immediate and delayed recall 3/3.
Cranial Nerves: Unable to visualize optic discs due to insufficient dilatation. Pupils are equally round and reactive to light.� EOMs full.� Visual swan full to confrontation.� No ptosis.� No nystagmus.� V1-V3 intact to light touch and pinprick
bilaterally, symmetric.� Face symmetric.�Able to whistle.� Normal hearing AU.� The palate elevated well.� SCMs and traps 5/5.� Tongue midline.� No dysarthria.
Motor:������� Normal bulk and tone.� No pronator or arm drift.� Strength 5/5 throughout, except for R delt 4-/5, L delt 4/5, L tric 4/5, L hip flexion 5-/5. Neck flexors/extensors-5/5.
Reflexes:������������ 0+ throughout the upper extremities and knees.� 0/2 in AJs. Plantar responses flexor bilaterally.
Sensory:���� Normal vibration and JPS at the toes
Coordination: No dysmetria or tremor.�
Gait:���������� deferred
�
Assessment and Plan:
I. GBS syndrome
II. �Probable small arachnoid cyst posterior left posterior fossa.
III. Elevated CRP
-Continue Telemetry monitoring
-Gammagard 0.4mg/kg/day for 5 days.
-MRI brain, C/T spine with evan
-Daily CBC, COMP
-follow up Lyme ab, vit B1, copper, TERRI, HIV, GQ1b, GM1 ab, NAVIN
-PT
-OP NCS/EMG in 3 weeks.
-DVT prophylaxis.
�
�
�
I personally reviewed all radiology and labs along with past medical records pertinent to current medical problems, total time spent in patient care is 45 min
Objective Data
Vital Signs
Temp Pulse Resp BP Pulse Ox
36.4 C 82 19 145/95 97
09/05/23 07:46 09/05/23 10:05 09/05/23 10:05 09/05/23 10:05 09/05/23 10:24
Lab Results
09/04/23 04:40
09/05/23 04:37
Sodium 136 mmol/L (135-145) 09/05/23 04:37
Potassium 4.1 mmol/L (3.5-5.1) 09/05/23 04:37
BUN 17 mg/dl (9-20) 09/05/23 04:37
Glucose 109 mg/dl (70-99) H 09/05/23 04:37
Calcium 9.0 mg/dl (8.4-10.2) 09/05/23 04:37
Vitamin B12 454 pg/ml (239-931) 09/03/23 09:58
Patient Allergies
No Known Allergies Allergy (Unverified 09/03/23 09:39)
--- NOTE | 2023-09-05 11:17 | PTCARENOTE ---
Patient off unit for MRI of brain and spine.
[2023-09-05] MEDS: TYLENOL 650 MG PO (12:52)
--- NOTE | 2023-09-05 16:23 | PTCARENOTE ---
Patient worked with PT today, ambulated in the halls with moderate assistance x1. Patient's weakness slowly improving. Patient still reports numbness bilateral lower extremities. Appetite not great today. Using urinal independently.
[2023-09-05 17:14] LABS: HIV Combo Negative (Negative)
[2023-09-05] MEDS: LOVENOX 40 MG SC (17:36)
[2023-09-05] MEDS: GAMMAGARD 300 IV (20:31)
[2023-09-05] MEDS: GAMMAGARD 50 IV (20:32)
--- NOTE | 2023-09-05 23:40 | PTCARENOTE ---
Pt AAOx3, Pt IVIG infused without complication. Assessment's, care and vitals as documented.
[2023-09-06] VITALS (15 sets, daily range): BP systolic 108–157; BP diastolic 63–108
--- NOTE | 2023-09-06 08:45 | PTCARENOTE ---
Patient received from shift stacker. Patient resting comfortably in bed. AAO, VSS. No events noted overnight. Complaints of shoulder and hip pain. Scheduled for MRI this AM. Due to pain, patient requesting pain control for MRI as lying flat
increases the pain. 15mg Toradol ordered. Patient able to ambulate in room with standby assistance. Call fulton in reach.
[2023-09-06] MEDS: TORADOL 15 MG IV (10:20)
--- NOTE | 2023-09-06 10:33 | PTCARENOTE ---
15mg Toradol given, patient taken to MRI via patient transport.
--- NOTE | 2023-09-06 11:08 | W.PN.HOSP.TC ---
Today's Communication/Plan
-
MRI T spine
IVIG
Assessment / Plan
Assessment / Plan
Exam unchanged from yesterday
LLE weakness slightly better
RLE same and RUE slightly better
Paresthesias in the left fifth toe better
Right toes and digits on the hands are better
MRI Brain personally reviewed by me
# Numbness tingling and weakness
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
EMG/NCS C/W GBS-acute demyelination. No axonal injury.
IVIG started 09/03/2023. Today is day 4
Hydrate well-Pt aware
Neurochecks
Normal B12 level
B1, Lyme, HIV and GQ 1B antibodies pending.
CSF paraneoplastic antibody pending
Serum copper level pending
CSF ANVIN level negative
MRI of the brain -without any acute changes small arachnoid cyst noted
# Central disc protrusion C3-C4 with mild disc bulge, C3-C4, C4-C5, C5-C6-Pt aware
#DVT Prophylaxis- Lovenox
#Full CODE
D/W RN
Discussed with neurology
Patient had pain lying flat for the MRI he has history of chronic back pain and left shoulder pain I have ordered Toradol if that does not work we can give him an alternate medicine. We we can also try a patch for his back and shoulder. Likely
secondary to patient laying down more in the bed.
Anticipated Discharge: 24 - 48 hours
Subjective/Interval History
-
Date of Service: September 06, 2023
Objective Data
-
Labs:
Laboratory Results
09/06/23
08:24
WBC Pending
Hgb Pending
Hct Pending
Plt Count Pending
Sodium Pending
Potassium Pending
Chloride Pending
Carbon Dioxide Pending
BUN Pending
Creatinine Pending
Glucose Pending
Calcium Pending
Vital Signs:
Vital Signs
Temp Pulse Resp BP Pulse Ox
97.9 F 68 18 126/65 97
09/06/23 07:45 09/06/23 06:00 09/06/23 06:00 09/06/23 06:00 09/06/23 03:40
I&O
09/05/23 09/06/23 09/07/23
06:59 06:59 06:59
Intake Total 2990 / 2990 2510 / 2510
Output Total 2069
Balance 920 / 920 2510 / 2510
[2023-09-06 12:43] LABS: Hematocrit 41.2 % (39.0-52.0); Hemoglobin 14.3 g/dL (13.0-18.0); Mean Corp Hgb Conc. 34.7 g/dL (33.0-37.0); Mean Corpuscular Hgb 28.7 pg (27.0-31.0); Mean Corpuscular Volume 82.6 fL (80.0-94.0); Mean Platelet Volume 9.6 fL (7.4-10.4); Platelet Count 337 10^3/uL (130-400); Red Blood Cell Count 4.99 10^6/uL (4.70-6.10); Red Cell Dist. Width 13.3 % (11.5-14.5); White Blood Cell Count 3.9 10^3/uL (4.8-10.8)
[2023-09-06 13:02] LABS: Blood Urea Nitrogen 14 mg/dl (9-20); Calcium 9.6 mg/dl (8.4-10.2); Carbon Dioxide 27 mmol/L (22-30); Chloride 105 mmol/L (98-107); Estimated Creatinine Clearance > 125 ml/min; Glucose 95 mg/dl (70-99); Potassium 4.1 mmol/L (3.5-5.1); Sodium 136 mmol/L (135-145); eGFR > 60.00
--- NOTE | 2023-09-06 13:55 | W.PN.NEURO.1 ---
Today's Communication / Plan
-
.
Subjective/Objective
Subjective Data
Date of Service: September 06, 2023
24h events: normotensive, afebrile. Mr. Viera endorses improvement in right arm weakness. Was able to ambulate with PT(felt difficulties with raising his feet). � No reports of headache, dyspnea, dysarthria, dysphagia change in vision
Brain MRI��significant acute on chronic maxillary/sphenoid sinus disease, posterior fossa arachnoid cyst
C/T spine-T8-9 DJD, no cord abnormalities.
Labs: CRP-36.70, normal vit B12, TSH, CK, ESR
CSF(09/03/2023)- WBC 7-8, protein 98, gluc 55
Constitutional: Negative. Negative for chills, fever and unexpected weight change.
HENT: Negative for ear pain, hearing loss, tinnitus and trouble swallowing.
Eyes: Negative. Negative for photophobia, pain and visual disturbance.
Respiratory: Negative for cough, choking and shortness of breath.
Cardiovascular: Negative for chest pain, palpitations and leg swelling.
Gastrointestinal: Negative for abdominal pain and vomiting.
Endocrine: Negative. Negative for cold intolerance.
Genitourinary: Negative for dysuria, flank pain and urgency.
Musculoskeletal: positive for chronic back pain, left scapular pain
Skin: Negative for rash.
Allergic/Immunologic: Negative. Negative for immunocompromised state.
Neurological: positive for L>R proximal arm weakness.
Psychiatric/Behavioral: Negative for behavioral problems, confusion and hallucinations.
�
�
General: Well developed. In no acute distress.
Cardio: Regular rate and rhythm without murmur. Extremities are without cyanosis or edema.
Neuro:
Mental Status: Alert, oriented to person, place, and date.� Normal attention and recall.� Good fund of knowledge. Follows complex requests across the midline.� Comprehension, naming, and repetition intact.� Immediate and delayed recall 3/3.
Cranial Nerves: Unable to visualize optic discs due to insufficient dilatation. Pupils are equally round and reactive to light.� EOMs full.� Visual swan full to confrontation.� No ptosis.� No nystagmus.� V1-V3 intact to light touch and pinprick
bilaterally, symmetric.� Face symmetric.�Able to whistle.� Normal hearing AU.� The palate elevated well.� SCMs and traps 5/5.� Tongue midline.� No dysarthria.
Motor:������� Normal bulk and tone.� No pronator or arm drift.� Strength 5/5 throughout, except for R delt 4-/5, L delt 4/5, L tric 4/5, L hip flexion 5-/5. Neck flexors/extensors-5/5.
Reflexes:������������ 0+ throughout the upper extremities and knees.� 0/2 in AJs. Plantar responses flexor bilaterally.
Sensory:���� Normal vibration and JPS at the toes
Coordination: No dysmetria or tremor.�
Gait:���������� deferred
�
Assessment and Plan:
I. GBS syndrome
II. Acute on chronic maxillary/sphenoid sinus disease
III. Posterior fossa arachnoid cyst
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
-Continue Telemetry monitoring
-Gammagard 0.4mg/kg/day for 5 days.
-ENT consult
-Daily CBC, COMP
-follow up vit B1, copper, TERRI, HIV, GQ1b, GM1 ab, NAVIN
-PT
-OP NCS/EMG in 3 weeks.
-DVT prophylaxis.
�
�
�
I personally reviewed all radiology and labs along with past medical records pertinent to current medical problems, total time spent in patient care�
Objective Data
Vital Signs
Temp Pulse Resp BP Pulse Ox
37.0 C 68 18 126/65 95
09/06/23 12:48 09/06/23 06:00 09/06/23 06:00 09/06/23 06:00 09/06/23 12:07
Lab Results
09/06/23 12:30
09/06/23 12:30
Sodium 136 mmol/L (135-145) 09/06/23 12:30
Potassium 4.1 mmol/L (3.5-5.1) 09/06/23 12:30
BUN 14 mg/dl (9-20) 09/06/23 12:30
Glucose 95 mg/dl (70-99) 09/06/23 12:30
Calcium 9.6 mg/dl (8.4-10.2) 09/06/23 12:30
Vitamin B12 454 pg/ml (239-931) 09/03/23 09:58
Patient Allergies
No Known Allergies Allergy (Unverified 09/03/23 09:39)
--- NOTE | 2023-09-06 16:43 | CM ---
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 Receiving IV Immune Globulin. PT & OT recommend outpatient therapy.
Spoke with Dr Rush; she would like the patient to setup an appt with a PCP who will follow the patient in regard to his outpatient PT/OT, and then she will provide a script for therapy.
Phone call to patient's Kirstin; left message requesting she setup a PCP appt for patient and let CM know once done.
Plan follow up with re; PCP appt.
Plan home with scripts for outpatient PT/OT.
[2023-09-06] MEDS: LOVENOX 40 MG SC (17:50)
--- NOTE | 2023-09-06 18:17 | PTCARENOTE ---
Report given to [address]. Patient transported via wheel chair with all known belongings.
--- NOTE | 2023-09-06 20:06 | PTCARENOTE ---
Received pt from IMU , Pt awake,alert and oriented x3, assessment and neurochecks unchanged, VSS NSR-ST on tele 95% on RA.Pt has no c/o pain at this time, oriented to room, call fulton within reach, plan of care ongoing.
[2023-09-06] MEDS: GAMMAGARD 50 IV (20:36)
[2023-09-06] MEDS: GAMMAGARD 300 IV (21:50)
[2023-09-07] VITALS (16 sets, daily range): BP systolic 115–151; BP diastolic 71–100; PULSE 109–110; O2SAT 97–99
[2023-09-07] MEDS: PERCOCET 5/325 1 TABLET PO ×2 (00:50→23:22)
[2023-09-07 01:54] LABS: Paraneoplastic Ab IgG, CSF None Detected (None Detected)
[2023-09-07 03:13] LABS: Asialo-GM1 Antibody 9 IV (0-50); GD1a Antibody 9 IV (0-50); GD1b Antibodies 7 IV (0-50); GM1 Antibody 7 IV (0-50); GM2 Antibody 6 IV (0-50); GQ1b Antibodies 9 IV (0-50)
--- NOTE | 2023-09-07 09:37 | W.PN.NEURO.1 ---
Today's Communication / Plan
-
.
Subjective/Objective
Subjective Data
Date of Service: September 07, 2023
24h events: normotensive, afebrile. Mr. Viera endorses intermittent cramps in his lower legs, not disabling. He is no longer experiencing paresthesias in his tongues.
No reports of leg edema, pain.
Brain MRI��significant acute on chronic maxillary/sphenoid sinus disease, posterior fossa arachnoid cyst.
C/T spine-T8-9 DJD, no cord abnormalities.
CSF paraneoplastic ab-neg, HIV-neg, Lyme, NAVIN-neg.
Labs: CRP-36.70, normal vit B12, TSH, CK, ESR
CSF(09/03/2023)- WBC 7-8, protein 98, gluc 55
Constitutional: Negative. Negative for chills, fever and unexpected weight change.
HENT: Negative for ear pain, hearing loss, tinnitus and trouble swallowing.
Eyes: Negative. Negative for photophobia, pain and visual disturbance.
Respiratory: Negative for cough, choking and shortness of breath.
Cardiovascular: Negative for chest pain, palpitations and leg swelling.
Gastrointestinal: Negative for abdominal pain and vomiting.
Endocrine: Negative. Negative for cold intolerance.
Genitourinary: Negative for dysuria, flank pain and urgency.
Musculoskeletal: positive for chronic back pain, left scapular pain
Skin: Negative for rash.
Allergic/Immunologic: Negative. Negative for immunocompromised state.
Neurological: positive for L>R proximal arm weakness.
Psychiatric/Behavioral: Negative for behavioral problems, confusion and hallucinations.
�
�
General: Well developed. In no acute distress.
Cardio: Regular rate and rhythm without murmur. Extremities are without cyanosis or edema.
Neuro:
Mental Status: Alert, oriented to person, place, and date.� Normal attention and recall.� Good fund of knowledge. Follows complex requests across the midline.� Comprehension, naming, and repetition intact.� Immediate and delayed recall 3/3.
Cranial Nerves: Unable to visualize optic discs due to insufficient dilatation. Pupils are equally round and reactive to light.� EOMs full.� Visual swan full to confrontation.� No ptosis.� No nystagmus.� V1-V3 intact to light touch and pinprick
bilaterally, symmetric.� Face symmetric.�Able to whistle.� Normal hearing AU.� The palate elevated well.� SCMs and traps 5/5.� Tongue midline.� No dysarthria.
Motor:������� Normal bulk and tone.� No pronator or arm drift.� Strength 5/5 throughout, except for R delt 4-/5, L delt 4/5, L tric 4/5, L hip flexion 5-/5. Neck flexors/extensors-5/5.
Reflexes:������������ 0+ throughout the upper extremities and knees.� 0/2 in AJs. Plantar responses flexor bilaterally.
Sensory:���� Normal vibration and JPS at the toes
Coordination: No dysmetria or tremor.�
Gait:���������� deferred
�
Assessment and Plan:
I. GBS syndrome
II. Acute on chronic maxillary/sphenoid sinus disease
III. Posterior fossa arachnoid cyst
IV. - DJD
-Continue Telemetry monitoring
-Fall precautions
-Gammagard 0.4mg/kg/day for 5 days(today is the last dose)
-ENT consult
-Daily CBC, COMP
-follow up vit B1, copper, TERRI
-PT
-OP NCS/EMG in 3 weeks.
-DVT prophylaxis.
-OP Neurology follow up in 3 weeks.
�
�
Objective Data
Vital Signs
Temp Pulse Resp BP Pulse Ox
36.6 C 69 18 121/74 98
09/07/23 03:19 09/07/23 03:19 09/07/23 03:19 09/07/23 03:19 09/07/23 08:00
Lab Results
09/06/23 12:30
09/06/23 12:30
Sodium 136 mmol/L (135-145) 02/14/24 12:30
Potassium 4.1 mmol/L (3.5-5.1) 09/06/23 12:30
BUN 14 mg/dl (9-20) 09/06/23 12:30
Glucose 95 mg/dl (70-99) 09/06/23 12:30
Calcium 9.6 mg/dl (8.4-10.2) 09/06/23 12:30
Vitamin B12 454 pg/ml (377-931) 09/03/23 09:58
Patient Allergies
No Known Allergies Allergy (Unverified 09/03/23 09:39)
[2023-09-07] MEDS: TYLENOL 650 MG PO (11:29)
--- NOTE | 2023-09-07 12:18 | CM ---
Patient seen bedside with . Per , working on setting up appointment with PCP. Per previous CM note, after PCP appointment is set, Hospitalist will provide outpatient script for PT/OT. CM will check in with patient and later. CM will
continue to follow for discharge planning needs.
Plan; home with and outpatient PT/OT script.
[2023-09-07 12:28] LABS: Lyme Disease DNA by PCR Not Detected; Lyme Source Serum
--- NOTE | 2023-09-07 14:15 | PTCARENOTE ---
monitor car operator reading Sinus Tach 130s-150s. Patient OOB in bathroom and than in chair bedside. Asymptomatic. EKG done. Dr Rush made aware who came bedside to see patient. HR broke and rate decreased on its own to low 100s. Patient remains
asymptomatic. at bedside. No new orders. Will continue to monitor closely.
--- NOTE | 2023-09-07 15:16 | W.PN.HOSP.TC ---
Addendum entered and electronically signed by Rhona Rush MD 09/09/23 14:24:
Dictn-[id number]
Original Note:
Today's Communication/Plan
-
Watch on tele
USS LE
Assessment / Plan
Assessment / Plan
Exam unchanged from yesterday
LLE weakness slightly better
RLE same and RUE slightly better
Paresthesias in the left fifth toe better
Right toes and digits on the hands are better
MRI Brain personally reviewed by me
# Numbness tingling and weakness
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
EMG/NCS C/W GBS-acute demyelination. No axonal injury.
IVIG started 09/03/2023. Today is day 4
Hydrate well-Pt aware
Neurochecks
Normal B12 level
B1 pending
Lyme Serology neg
HIV neg
GQ 1B antibodies neg
CSF paraneoplastic antibody neg
Serum copper level pending
CSF NAVIN level negative
MRI of the brain , C and T spine with no Demyelination-, small arachnoid cyst noted
#One episode of sinus tach
Asymptomatic
Monitor on tele
# Central disc protrusion C3-C4 with mild disc bulge, C3-C4, C4-C5, C5-C6-Pt aware
T8-9, small to moderate central and left paracentral disc protrusion which causes slight compression of the anterior margin of the spinal cord.
T9-10, small right paracentral disc protrusion compressing the anterior thecal sac with no evidence of cord compression.
#DVT Prophylaxis- Lovenox
#Full CODE
D/W RN
Discussed with at bed side
Anticipated Discharge: Within 24 hours
Subjective/Interval History
-
Date of Service: September 07, 2023
Objective Data
-
Vital Signs:
Vital Signs
Temp Pulse Resp BP Pulse Ox
98.0 F 100 18 148/95 95
09/07/23 14:53 09/07/23 14:53 09/07/23 14:53 09/07/23 14:53 09/07/23 14:53
I&O
09/06/23 09/07/23 09/08/23
06:59 06:59 06:59
Intake Total 2510 / 2510 480 / 480
Balance 2510 / 2510 480 / 480
[2023-09-07 16:12] LABS: Copper, Serum 92.8 ug/dL (70.0-140.0)
--- NOTE | 2023-09-07 16:52 | CON.CAR ---
Addendum entered and electronically signed by Luc Chavarria MD 09/07/23 17:11:
I saw and examined the patient.
The TANK CREWMEMBER's note was reviewed and I agree with the note.
Comment: 38 y/o male with no known PMH who is here for tingling in hands and toes and muscle weakness. He is diagnosed with Guillain [place] syndrome and is being treated with IVIG. We are consulted due to sinus tachycardia. He is not symptomatic. BP
stable. �
- tele is sinus tachycardia
- he is asymptomatic
- we will obtain TTE to r/o structural disease, otherwise suspect improvement with ongoing improvement of GBS
We will sign off unless TTE is abnormal
Original Note:
Consultation
Consultation Request
Date/Time Consultation Requested: 09/07/23 1623
Date/Time Consultation Performed: 09/07/23 1630
Requesting Provider: Dr. Rush
Performing Provider: Jeanie MANUEL for Dr. Chavarria
Reason for Consultation: Tachycardia
Medical History
-
Chief Complaint: tingling in toes and hands, weakness
History of Present Illness:
38 y/o male with no known PMH who is here for tingling in hands and toes and muscle weakness. He is diagnosed with Guillain [place] syndrome and is being treated with IVIG. We are consulted due to sinus tachycardia. He is not symptomatic. BP stable.
Past Medical History
Past Medical History: None
Social History
Tobacco: Non-Smoker
Alcohol: None
Personal:
Living: With Family
Family History
Family History: Reviewed & Not Pertinent (denies family heart history)
Allergies / Home Medications
Allergy/AdvReac Type Severity Reaction Status Date / Time
No Known Allergies Allergy Unverified 09/03/23 09:39
Medication Instructions Recorded Confirmed Type
dtmlodi-tvrbkdsswdmgi-szessmai 250 2 tab PO DAILYPRN PRN mild pain 09/03/23 09/03/23 History
mg-250 mg-65 mg tablet (Excedrin
Extra Strength)
Review of Systems
-
History Source: Patient
All other systems: Negative unless noted
Neurological: Weakness and Other (tingling in fingers)
Physical Exam
Vital Signs
Temp Pulse Resp BP Pulse Ox
98.0 F 100 18 148/95 95
09/07/23 14:53 09/07/23 14:53 09/07/23 14:53 09/07/23 14:53 09/07/23 14:53
Lab Results
09/06/23 12:30
09/06/23 12:30
Physical Exam
General: Well Developed, Well Nourished and No Apparent Distress
HEENT: Normocephalic and Anicteric
Respiratory: Clear and Non Labored Respirations
Cardiac: Regular Rhythm (fast rate)
Musculoskeletal: No Edema
Skin: Warm
Neuro: AO x 3
Psych: Calm
Impression / Plan
-
Guillain-[place] Syndrome:
-management per neuro, getting IVIG
Sinus tachycardia:
-in setting of above
-asymptomatic
-follow telemetry
-check echo
Data Reviewed
-
EKG: Tracing Personally Visualized and interpreted (ST 104 BPM)
MRI: Report Reviewed by me (brain MRI: There is no acute intracranial process. No focal mass or abnormal enhancement on postcontrast imaging. Probable arachnoid cyst posterior fossa to the left of midline. Significant acute on chronic diffuse
sinus disease.)
Medical Tests (Nuc Med, Echo etc): Other (ordered)
Labs: Labs Reviewed by me
[2023-09-07] MEDS: LOVENOX 40 MG SC (17:47)
[2023-09-07] MEDS: GAMMAGARD 300 IV (20:15)
[2023-09-07] MEDS: GAMMAGARD 50 IV (22:31)
[2023-09-08] VITALS (7 sets, daily range): BP systolic 118–142; BP diastolic 83–98; PULSE 89
[2023-09-08 02:07] LABS: Vitamin B1, Whole Blood 116 nmol/L (70-180)
[2023-09-08 07:44] LABS: ANA, IgG Reflex to HEp-2 Detected (None Detected)
[2023-09-08 09:02] LABS: Blood Urea Nitrogen 17 mg/dl (9-20); Calcium 10.1 mg/dl (8.4-10.2); Carbon Dioxide 28 mmol/L (22-30); Chloride 99 mmol/L (98-107); Estimated Creatinine Clearance 124 ml/min; Glucose 105 mg/dl (70-99); Magnesium 2.3 mg/dl (1.6-2.3); Potassium 4.5 mmol/L (3.5-5.1); Sodium 137 mmol/L (135-145); eGFR > 60.00
--- NOTE | 2023-09-08 10:46 | CM ---
Patient seen bedside, inquiring about discharge. TT sent to Hospitalist regarding discharge. CM left voicemail to patients , Kirstin, regarding PCP appointment. CM will continue to follow for discharge planning needs.
Plan; home with script for outpatient PT.
[2023-09-08] MEDS: TYLENOL 650 MG PO (11:29)
[2023-09-08 14:31] LABS: ALT (SGPT) 100 U/L (0-50); AST (SGOT) 101 U/L (17-59); Albumin 4.4 g/dl (3.5-5.0); Alkaline Phosphatase 64 U/L (38-126); Direct Bilirubin 0.6 mg/dl (0.0-0.4); Total Bilirubin 2.1 mg/dl (0.2-1.3); Total Protein 9.7 g/dl (6.3-8.2)
--- NOTE | 2023-09-08 14:41 | W.PN.HOSP.TC ---
Today's Communication/Plan
-
USS
Follow LFT
Treat Constipation
Assessment / Plan
Assessment / Plan
Weakness legs better, right arm weakness better
Numbness better
# GBS
Numbness tingling and weakness
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
EMG/NCS C/W GBS-acute demyelination. No axonal injury.
IVIG started 09/03/2023. Today is day 4
Hydrate well-Pt aware
Neurochecks
Normal B12 level
B1 normal
TERRI positive- Needs OP follow up
Lyme Serology neg
HIV neg
GQ 1B antibodies neg
CSF paraneoplastic antibody neg
Serum copper level Normal
CSF NAVIN level negative
MRI of the brain , C and T spine with no Demyelination-, small arachnoid cyst noted
#Sinus tach
Asymptomatic
ECHO Normal
Cards eval appreciated.
#Elevated LFTS
? Due to IVIG
No RUQ Tenderness
USS
GI eval.
#Positive TERRI
Pt and aware
Needs OP follow up to see if false positive
Has no other symptoms
#Constipation- Bowel regimen
# Central disc protrusion C3-C4 with mild disc bulge, C3-C4, C4-C5, C5-C6-Pt aware
T8-9, small to moderate central and left paracentral disc protrusion which causes slight compression of the anterior margin of the spinal cord.
T9-10, small right paracentral disc protrusion compressing the anterior thecal sac with no evidence of cord compression.
#DVT Prophylaxis- Lovenox
#Full CODE
D/W RN
Discussed with at bed side
Anticipated Discharge: Within 24 hours
Subjective/Interval History
-
Date of Service: September 08, 2023
Objective Data
-
Labs:
Laboratory Results
09/08/23
08:08
Sodium 137
Potassium 4.5
Chloride 99
Carbon Dioxide 28
BUN 17
Creatinine 1.0
Glucose 105 H
Calcium 10.1
Total Bilirubin 2.1 H
AST 101 H
ALT 100 H
Alkaline Phosphatase 64
Vital Signs:
Vital Signs
Temp Pulse Resp BP Pulse Ox
98.3 F 80 18 128/86 96
09/08/23 11:40 09/08/23 11:40 09/08/23 11:40 09/08/23 11:40 09/08/23 11:40
I&O
09/07/23 09/08/23 09/09/23
06:59 06:59 06:59
Intake Total 480 / 480 1440 / 1440
Balance 480 / 480 1440 / 1440
[2023-09-08] MEDS: SENOKOT 8.59999999999999964 MG PO (15:33)
[2023-09-08] MEDS: MIRALAX 17 GRAMS PO (15:33)
[2023-09-08] MEDS: MILK OF MAGNESIA 30 ML PO (15:33)
--- NOTE | 2023-09-08 16:13 | CON.GI ---
Addendum entered and electronically signed by Abdirashid Butts MD 09/08/23 17:46:
I saw and examined the patient.
The GEAR CUTTING MACHINE SET UP OPERATOR or PA's note was reviewed and I agree with the note.
Comment: 38 yo M initially had nausea/sinus infection c/b parasthesias/muscle weakness diagnosed with GBS s/p IVIG with improvement in neuro symptoms.
GI c/s for abnormal LFTs.
Admission --> today: AST 57--> 101; ALT 90 --> 100; TB elevated but all indirect normal AP. TERRI positive no titer.
Denies EtOH, IVDU, blood transfusion, herbal supplement, history of liver dz, weight gain.
No GI complaints today.
Diff: med induced (IVIG), viral, autoimmune, MASLD, less likely hepatitis, hemochromatosis.
Hepatitis, autoimmune studies, iron studies all ordered. US is pending.
TB likely due to Gilbert's all indirect.
If LFTs stable/downtrending ok d/c GI POV tomorrow with plan to repeat LFTs in 1 week.
Given appt with Irene VELEZ 10/18 at 11:30 am.
Original Note:
Consultation
-
Date/Time Consultation Requested: 09/08/23 1448
Date/Time Consultation Performed: 09/08/23 1600
Requesting Provider: Dr. Rush
Performing Provider: Dr. Butts / Irene Stokes PA-C
Reason for Consultation: elevated LFTs
Medical History
Chief Complaint / HPI
Chief Complaint: elevated LFTs
History of Present Illness:
Wilfred is a 38 year old male who presented to the hospital with paresthesias and muscle weakness, diagnosed with Guillain [place] and consulted by Neurology during his hospital admission, given IVIG with improvement in his neurologic symptoms. Labs
today showed elevated LFTs, as follows: total bili 2.1, direct bili 0.6, AST 101, ALT 100 and alk phos 64. He states he has never had elevated LFTs before. No prior history of liver disease. No family history of liver disease, although he does note
that his maternal grandfather had metastatic liver cancer (unknown primary). Patient does not drink alcohol. He does not take any prescription medications, and denies any OTC supplements or vitamins. He denies NSAID use. He does take acetaminophen
as needed for headaches. No drug use. He denies any abdominal pain, nausea, vomiting, jaundice, dark urine, rashes, diarrhea or constipation. Ultrasound of the abdomen has been ordered, results pending.
Past Medical History
Past Medical History: None
Past Surgical History: None
Social History
Tobacco: Non-Smoker
Alcohol: None
Drug: None
Personal:
Living: With Family
Employment: Employed
Family History
Family History: Other (maternal grandfather had metastatic liver cancer (unknown primary CA), otherwise no pertinent family history)
Allergies / Home Medications
Allergy/AdvReac Type Severity Reaction Status Date / Time
No Known Allergies Allergy Unverified 09/03/23 09:39
Medication Instructions Recorded
exlaqrp-zhdborzmnkelm-ormwdcxd 250 2 tab PO DAILYPRN PRN mild pain 09/03/23
mg-250 mg-65 mg tablet (Excedrin
Extra Strength)
acetaminophen 325 mg tablet 650 mg PO Q4HPRN PRN pain #0 tabs 09/08/23
Review of Systems
-
History Source: Patient
All other systems: A 12 pt ROS was Negative except as stated above in HPI
Vital Signs
Temp Pulse Resp BP Pulse Ox
98.6 F 91 18 139/94 97
09/08/23 15:26 09/08/23 15:26 09/08/23 15:26 09/08/23 15:26 09/08/23 15:26
Physical Exam
Exam
General: Well Developed, Well Nourished and No Apparent Distress
HEENT: Anicteric
Respiratory: Clear
Cardiac: Regular Rhythm
GI: Soft, Non Tender, Non Distended and Normal Bowel Sounds
Skin: Warm, Dry and Rash
Neuro: AO x 3
Psych: Calm
Results
WBC 3.9 10^3/uL (4.8-10.8) L 09/06/23 12:30
Hgb 14.3 g/dL (13.0-18.0) 09/06/23 12:30
Hct 41.2 % (39.0-52.0) 09/06/23 12:30
MCV 82.6 fL (80.0-94.0) 09/06/23 12:30
Plt Count 337 10^3/uL (130-400) 09/06/23 12:30
Absolute Neuts (auto) 3.5 10^3/uL (1.4-6.5) 09/03/23 09:58
Sodium 137 mmol/L (135-145) 09/08/23 08:08
Potassium 4.5 mmol/L (3.5-5.1) 09/08/23 08:08
Chloride 99 mmol/L (98-107) 09/08/23 08:08
Carbon Dioxide 28 mmol/L (22-30) 09/08/23 08:08
BUN 17 mg/dl (9-20) 09/08/23 08:08
Creatinine 1.0 mg/dL (0.7-1.3) 09/08/23 08:08
Calcium 10.1 mg/dl (8.4-10.2) 09/08/23 08:08
Total Bilirubin 2.1 mg/dl (0.2-1.3) H 09/08/23 08:08
AST 101 U/L (17-59) H 09/08/23 08:08
ALT 100 U/L (0-50) H 09/08/23 08:08
Alkaline Phosphatase 64 U/L (38-126) 09/08/23 08:08
Diagnostic Image Results:
abdominal US pending
Prior GI Procedures: Never
EGD:
Colonoscopy:
Assessment / Plan
-
38 year old male who presented to the hospital with paresthesias and muscle weakness, diagnosed with Guillain [place] and consulted by Neurology during his hospital admission, given IVIG with improvement in his neurologic symptoms. Labs today showed
elevated LFTs, as follows: total bili 2.1, direct bili 0.6, AST 101, ALT 100 and alk phos 64. He states he has never had elevated LFTs before. No prior history of liver disease. No family history of liver disease, although he does note that his
maternal grandfather had metastatic liver cancer (unknown primary). He takes no medications or supplements. No alcohol or drug use. He takes PRN acetaminophen but denies NSAID use. He denies any abdominal pain, nausea, vomiting, jaundice, dark
urine, rashes, diarrhea or constipation. Ultrasound of the abdomen is pending. Labs reviewed, TERRI positive.
Elevated LFTs
-abdominal US pending
-positive TERRI
-will order further workup to exclude underlying liver disease including hepatitis serologies, iron studies to rule out hemochromatosis, anti-mitochondrial antibody, anti-smooth muscule antibody, anti-LKM 1 antibody and PT/INR
He has been recommended to follow up with Neurology outpatient for the Guillain [place] syndrome.
-
-
Thank you for consultation and allowing me to participate in the patient's care. Please call the document control associate GI physician during the after hours with any questions or concerns.
[2023-09-08] MEDS: LOVENOX 40 MG SC (17:34)
[2023-09-09 03:33] VITALS: BP 107/65
[2023-09-09 06:38] VITALS: BMI 28.8
[2023-09-09 07:21] VITALS: BP 121/81
[2023-09-09 08:09] LABS: Iron 187 ug/dl (49-181)
[2023-09-09 08:21] LABS: Percent Saturation 58 % (20-50); Total Iron Binding Capacity 321 ug/dl (261-462)
[2023-09-09] MEDS: MIRALAX PO (08:37)
[2023-09-09 08:45] LABS: ALT (SGPT) 116 U/L (0-50); AST (SGOT) 120 U/L (17-59); Albumin 4.3 g/dl (3.5-5.0); Alkaline Phosphatase 64 U/L (38-126); Blood Urea Nitrogen 18 mg/dl (9-20); Calcium 9.7 mg/dl (8.4-10.2); Carbon Dioxide 21 mmol/L (22-30); Chloride 103 mmol/L (98-107); Estimated Creatinine Clearance > 125 ml/min; Glucose 97 mg/dl (70-99); Sodium 135 mmol/L (135-145); Total Bilirubin 2.6 mg/dl (0.2-1.3); Total Protein 9.5 g/dl (6.3-8.2); eGFR > 60.00
[2023-09-09 08:50] LABS: ALT (SGPT) 115 U/L (0-50); AST (SGOT) 115 U/L (17-59); Albumin 4.2 g/dl (3.5-5.0); Alkaline Phosphatase 68 U/L (38-126); Direct Bilirubin 0.5 mg/dl (0.0-0.4); Total Bilirubin 2.6 mg/dl (0.2-1.3); Total Protein 9.4 g/dl (6.3-8.2)
[2023-09-09 08:56] VITALS: BP 127/95; PULSE 89; O2SAT 98
--- NOTE | 2023-09-09 10:19 | W.PN.GI.CBS2 ---
Today's Communication / Plan
-
discharge, outpatient follow up of LFTs
Assessment / Plan
-
38 yo M initially had nausea/sinus infection c/b parasthesias/muscle weakness diagnosed with GBS s/p IVIG with improvement in neuro symptoms.
GI c/s for abnormal LFTs.
Admission --> today: AST 57--> 101--> 115; ALT 90 --> 100 -->115; TB elevated but all indirect normal AP.� TERRI positive no titer.
Denies EtOH, IVDU, blood transfusion, herbal supplement, history of liver dz, weight gain.
No GI complaints today.
Diff: med induced (IVIG), viral, autoimmune, MASLD, hemochromatosis, less likely hepatitis.
Iron studies this am with elevated ferritin and TS.
US with fatty liver.
TB likely due to Gilbert's all indirect.
LFTs are stable ok d/c GI POV today with plan to repeat LFTs in 1 week with HFE gene, ceruloplasmin, A1AT - I gave pt script. GI will sign off.
Will need fibroscan outpatient.
D/w Dr. Rush.
Given appt with Irene VELEZ 10/18 at 11:30 am.
Subjective
Subjective
Date of Service: September 09, 2023
Feels well wants to go home
Objective
Data Reviewed
Laboratory Data:
Laboratory Results
09/06/23 12:30
09/09/23 07:11
Laboratory Results
PT 14.0 Sec (11.4-14.6) 09/09/23 07:11
INR 1.10 09/09/23 07:11
Magnesium 2.3 mg/dl (1.6-2.3) 09/08/23 08:08
Total Bilirubin 2.6 mg/dl (0.2-1.3) H 09/09/23 07:11
Total Bilirubin 2.6 mg/dl (0.2-1.3) H 09/09/23 07:11
AST 115 U/L (17-59) H 09/09/23 07:11
AST 120 U/L (17-59) H 09/09/23 07:11
ALT 115 U/L (0-50) H 09/09/23 07:11
ALT 116 U/L (0-50) H 09/09/23 07:11
Alkaline Phosphatase 64 U/L (38-126) 09/09/23 07:11
Alkaline Phosphatase 68 U/L (38-126) 09/09/23 07:11
Vital Signs and I&O:
Vital Signs
Temp Pulse Resp BP Pulse Ox
97.8 F 92 18 121/81 96
09/09/23 07:21 09/09/23 07:21 09/09/23 07:21 09/09/23 07:21 09/09/23 07:21
I&O
09/08/23 09/09/23 09/10/23
06:59 06:59 06:59
Intake Total 1440 / 1440 1440 / 1440
Balance 1440 / 1440 1440 / 1440
Physical Exam
Physical Exam
GI: Non Distended and Non Tender
Neuro: Non Focal and Other (NAD)
[2023-09-09 11:00] VITALS: BP 140/94
--- NOTE | 2023-09-09 11:59 | W.PN.HOSP.TC ---
Today's Communication/Plan
-
Discharge
Assessment / Plan
Assessment / Plan
Weakness legs better, right arm weakness better
Numbness better
# GBS
Numbness tingling and weakness
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
EMG/NCS C/W GBS-acute demyelination. No axonal injury.
IVIG started 09/03/2023. Today is day 4
Hydrate well-Pt aware
Neurochecks
Normal B12 level
B1 normal
TERRI positive- Needs OP follow up-PT and aware
Lyme Serology neg
HIV neg
GQ 1B antibodies neg
CSF paraneoplastic antibody neg
Serum copper level Normal
CSF NAVIN level negative
MRI of the brain , C and T spine with no Demyelination-, small arachnoid cyst noted
#Sinus tach
Asymptomatic
ECHO Normal
Cards eval appreciated.
#Elevated LFTS
? Due to IVIG
No RUQ Tenderness
USS fatty liver-Pt aare
GI eval.appreiated
Immunology's and serologies ordered. Hepatitis panel pending
They will follow-up as outpatient.
#Positive TERRI
Pt and aware
Needs OP follow up to see if false positive
Has no other symptoms
#Constipation- Bowel regimen
# Central disc protrusion C3-C4 with mild disc bulge, C3-C4, C4-C5, C5-C6-Pt aware
T8-9, small to moderate central and left paracentral disc protrusion which causes slight compression of the anterior margin of the spinal cord.
T9-10, small right paracentral disc protrusion compressing the anterior thecal sac with no evidence of cord compression.
#DVT Prophylaxis- Lovenox
#Full CODE
D/W RN
Discussed with GI
Discussed with the patient regarding MRI findings, ultrasound findings, TERRI, elevated LFTs, he is aware that he is being discharged because he does not stay as inpatient but still needs a lot of follow-up as outpatient. He is aware about follow-up
with neurology, PT OT, GI and also recommend that he find a PCP.
Also discussed about not driving until he is cleared by occupational therapy
Note for work
Prescription for labs and PT OT are provided to the patient.
Discharge coordination time 33 minutes
Anticipated Discharge: Today
Subjective/Interval History
-
Date of Service: September 09, 2023
Objective Data
-
Labs:
Laboratory Results
09/09/23 09/09/23 09/09/23
07:11 07:11 07:11
PT 14.0
INR 1.10
Sodium 135
Potassium 5.0
Chloride 103
Carbon Dioxide 21 L
BUN 18
Creatinine 0.8
Glucose 97
Calcium 9.7
Total Bilirubin 2.6 H 2.6 H
AST 120 H 115 H
ALT 116 H
Alkaline Phosphatase
09/09/23 09/09/23
07:11 07:11
PT
INR
Sodium
Potassium
Chloride
Carbon Dioxide
BUN
Creatinine
Glucose
Calcium
Total Bilirubin
AST
ALT 115 H
Alkaline Phosphatase 64 68
Vital Signs:
Vital Signs
Temp Pulse Resp BP Pulse Ox
97.8 F 92 18 121/81 96
09/09/23 07:21 09/09/23 07:21 09/09/23 07:21 09/09/23 07:21 09/09/23 07:21
I&O
09/08/23 09/09/23 09/10/23
06:59 06:59 06:59
Intake Total 1440 / 1440 1440 / 1440
Balance 1440 / 1440 1440 / 1440
--- NOTE | 2023-09-09 12:04 | W.DS.TRANS ---
DC Summary - Diver [employer]
-
Discharge Instructions:
Discharge Diagnosis/Procedures GBS, spine -central disc protrusion C3-C4, C4-C5
, C5-C6. T8-T9-, T9-T10 moderate central and
left paracentral disc protrusion, sinus disease
on CT, Positive TERRI screen, Elevated Liver tests
,Fatty Liver
Diet As tolerated
Activity As tolerated
Driving Restrictions No driving until cleared by occupational therapy
Blood Work LFTs 1 week
Other Services PT,OT
Instructions:
Stand-Alone Forms:
Changes to Home Medications: No
Discharge Medications:
DC Medications w/original date entered in [employer]
[id number]-[id number] 250 mg-250 mg-65 mg tablet (Excedrin Extra Strength) 2 tab PO DAILYPRN PRN mild pain 09/03/23
Home Medication Changes
Pending Results: Yes
Additional Pending Results:
Immunology, serology workup for hepatitis. Hepatitis panel pending
--- NOTE | 2023-09-09 15:27 | CM ---
CM following re: d/c planning
Chart reviewed
Pt is medically stable for d/c
Pt was provided with a script for outpt PT/OT and f/u appointments are recommended with GI & neuro
Pt needs to secure finding a PCP which previous CM discussed with his spouse
No additional d/c needs to note
PLAN: d/c home with script for outpatient therapy
[2023-09-11 01:26] LABS: IgA 220 mg/dl (70-400)
[2023-09-11 01:38] LABS: IgG 3744 mg/dl (700-1600)
[2023-09-11 07:06] LABS: ANA Pattern Speckled; ANA, HEp-2, IgG Detected (<1:80)
[2023-09-11 11:48] LABS: IgM 102 mg/dl (40-230)
[2023-09-11 18:45] LABS: Hepatitis B Surface Antigen Negative (Negative)
[2023-09-11 19:03] LABS: Hepatitis B Core Ab, Total Negative (Negative); Hepatitis B Surface Antibody Positive; Hepatitis C Antibody Negative (Negative)
[2023-09-11 19:06] LABS: Hepatitis A Antibody, Total Positive (Negative)
[2023-09-11 21:02] LABS: Hepatitis A IgM Antibody Negative (Negative); Hepatitis B Core Ab, IgM Negative (Negative)
[2023-09-11 21:31] LABS: F-Actin Antibody IgG 23 Units (0-19); Mitochondrial M2 Ab, IgG 17.3 Units (0.0-24.9)
[2023-09-12 16:10] LABS: Smooth Muscle Antibody Titer 1:20 (<1:20)
[2023-09-12 17:45] LABS: LKM-1 Ab (IgG) 2.8 U (0.0-24.9)
== END 2023-09-09 12:55 | disposition home or self-care (01) | DRG 96 ==
LOC: 4 EAST ACU 18:28
PROVIDERS: Emergency Medicine; Physician Assistant; Physician Assistant Medical; Psychiatry & Neurology Neurology; ADMITTING PHYSICIAN Hospitalist; CONSULT PHYSICIAN Internal Medicine Cardiovascular Disease; CONSULT PHYSICIAN Internal Medicine Gastroenterology; CONSULT PHYSICIAN Psychiatry & Neurology Neurology; EMERGENCY PHYSICIAN Emergency Medicine
PROC: 009U3ZX Drainage of Spinal Canal, Percutaneous Approach, Diagnostic (ICD-10-PCS; 2023-09-03)
PROC: 30233S1 Transfusion of Nonautologous Globulin into Peripheral Vein, Percutaneous Approach (ICD-10-PCS; 2023-09-04)
DX: G61.0 Guillain-Barre syndrome (principal); M50.222 Other cervical disc displacement at C5-C6 level; M51.24 Other intervertebral disc displacement, thoracic region; K76.0 Fatty (change of) liver, not elsewhere classified; R00.0 Tachycardia, unspecified; K59.00 Constipation, unspecified; T50.Z15A Adverse effect of immunoglobulin, initial encounter; R76.8 Other specified abnormal immunological findings in serum; J01.00 Acute maxillary sinusitis, unspecified; J01.30 Acute sphenoidal sinusitis, unspecified; G93.0 Cerebral cysts
CPT/HCPCS: 62270; 70450; 70553; 72156; 72157; 76700; 80048; 80053; 80076; 82164; 82248; 82525; 82550; 82607; 82728; 82784; 82945; 83036; 83516; 83540; 83550; 83735; 84157; 84425; 84443; 85025; 85027; 85610; 85652; 86015; 86038; 86039; 86140; 86255; 86256; 86376; 86381; 86618; 86704; 86705; 86706; 86708; 86709; 86803; 87015; 87070; 87205; 87340; 87389; 87476; 87483; 88108; 89051; 93005; 93306; 93970; 95886; 95911; 97112; 97116; 97162; 97166; 97530; 99285; A9575; J1569

== ENCOUNTER → 2023-09-15 13:51 | Outpatient (REF) | payer OTHER, SELFPAY ==
[2023-09-15 15:00] LABS: ALT (SGPT) 126 U/L (0-50); AST (SGOT) 71 U/L (17-59); Albumin 4.5 g/dl (3.5-5.0); Alkaline Phosphatase 61 U/L (38-126); Direct Bilirubin 0.5 mg/dl (0.0-0.4); Total Bilirubin 1.3 mg/dl (0.2-1.3); Total Protein 8.8 g/dl (6.3-8.2)
[2023-09-17 19:40] LABS: Ceruloplasmin 22 mg/dL (15-30)
[2023-09-17 19:50] LABS: Alpha-1-Antitrypsin 92 mg/dL (90-200)
[2023-09-22 21:43] LABS: Hemochromatosis Specimen Whole Blood
== END ==
LOC: REG 13:51
PROVIDERS: ATTENDING PHYSICIAN Internal Medicine Gastroenterology
DX: R74.8 Abnormal levels of other serum enzymes (principal)
CPT/HCPCS: 36415; 80076; 81256; 82103; 82390